=== PATIENT | female | born 1995 | race Two or more races ===

== ENCOUNTER 2018-08-23 16:18 | Emergency (ER) | payer SELFPAY ==
[~2018-08-23] VITALS: Ht 162.6 cm; Wt 80.7 kg
[~2018-08-23 16:18] MED LIST: BACTRIM-DS1 EA PO; VICODIN 5-5001 EACH PO
[2018-08-23] MEDS ORDERED: NKM (16:29)
[2018-08-23 16:35] VITALS: BP 155/101
--- NOTE | 2018-08-23 17:10 | Emergency Room Report ---
History of Present Illness General Chief Complaint: Flu Like Symptoms Source: Patient Present Illness HPI 22-year-old female presents to the emergency department complaining of 10 out of 10 in severity sore throat, fevers and chills, nasal congestion and rhinorrhea as well as swollen tender lymph nodes in the neck area 2 days. Patient states she has been around several other contacts who have had similar symptoms. Patient states she is up-to-date with vaccinations except for the sutures flu vaccine. Patient denies cough however she states she has a moderate amount of mucus in her throat that she is unable to clear. Denies SOB , CP , Palpitations or sudden onset of CASTILLO. Allergies: Coded Allergies: No Known Allergies (Unverified , 04/22/12) Patient History Past Medical History: see triage record Past Surgical History: none Pertinent Family History: none Last Menstrual Period: 07/30/18 Now: No Immunizations: UTD Reviewed Nursing Documentation: PMH: Agreed; PSxH: Agreed Nursing Documentation-PMH Past Medical History: No Stated History Review of Systems All Other Systems: negative except mentioned in HPI Physical Exam Vital Signs Date Time Temp Pulse Resp B/P (MAP) Pulse Ox O2 Delivery O2 Flow Rate FiO2 08/23/18 16:27 98.2 118 18 155/101 99 Room Air Sp02 EP Interpretation: reviewed, normal General Appearance: no apparent distress, alert, GCS 15, non-toxic Head: normocephalic, atraumatic Eyes: bilateral eye normal inspection, bilateral eye PERRL ENT: hearing grossly normal, normal voice, TMs + canals normal, uvula midline, moist mucus membranes, nasal congestion, tonsillar swelling, pharyngeal erythema , tonsillar exudate Neck: full range of motion, no meningismus Respiratory: chest non-tender, lungs clear, normal breath sounds, no wheezing, speaking full sentences Cardiovascular #1: regular rate, rhythm Musculoskeletal: back normal, gait/station normal, normal range of motion, non- tender Neurologic: alert, oriented x3, responsive, motor strength/tone normal, sensory intact, speech normal, grossly normal Psychiatric: judgement/insight normal Skin: normal color, no rash, warm/dry, well hydrated Lymphatic: no adenopathy Medical Decision Making PA Attestation Dr. Garcia is my supervising Physician whom patient management has been discussed with. Diagnostic Impression: Primary Impression: Pharyngitis, acute Qualified Codes: J02.0 - Streptococcal pharyngitis ER Course 22-year-old female presents to the emergency department complaining of 10 out of 10 in severity sore throat, fevers and chills, nasal congestion and rhinorrhea as well as swollen tender lymph nodes in the neck area 2 days. Patient states she has been around several other contacts who have had similar symptoms. Patient states she is up-to-date with vaccinations except for the sutures flu vaccine. Patient denies cough however she states she has a moderate amount of mucus in her throat that she is unable to clear. Denies SOB , CP , Palpitations or sudden onset of CASTILLO. Ddx considered but are not limited to: pharyngitis, strep, SEWER PIPE OFFBEARER, ludwigs angina, URI Vital signs: are WNL, pt. is afebrile H&PE are most consistent with: pharyngitis presumed strep. ORDERS: None required at this time as the diagnosis is clinical ED INTERVENTIONS: -Viscous Lidocaine PO -I do not identify an emergent condition at this time. With current presentation , pt. is stable for close outpatient follow up and conservative treatment. D/ w pt. to return promptly to ED with worsening or new symptoms.- Pt. verbalizes' understanding and agreement with proposed treatment plan.proposed treatment plan. DISCHARGE: At this time pt. is stable for d/c to home. Will provide printed patient care instructions, and any necessary prescriptions. Care plan and follow up instructions have been discussed with the patient prior to discharge. Last Vital Signs Date Time Temp Pulse Resp B/P (MAP) Pulse Ox O2 Delivery O2 Flow Rate FiO2 08/23/18 16:27 98.2 118 18 155/101 99 Room Air Disposition: HOME, SELF-CARE Condition: Stable Scripts Cetirizine Hcl/Pseudoephedrine (ZYRTEC-D TABLET) 1 Each Tab.er.12h 1 EACH ORAL Q12HR, #20 TAB Prov: Neyda Brunson 08/23/18 Guaifenesin (Guaifenesin) 1,200 Mg Tab.er.12h 1200 MG PO Q12HR, #20 TAB Prov: Neyda Brunson 08/23/18 Acetaminophen* (TYLENOL EXTRA STRENGTH*) 500 Mg Tablet 500 MG ORAL Q6H PRN for Mild Pain/Temp > 100.5, #30 TAB 0 Refills Prov: Neyda Brunson 08/23/18 Lidocaine HCl 2% Viscous (Lidocaine HCl 2% Viscous) 100 Ml Solution 15 ML ORAL QID, #220 ML Prov: Neyda Brunson 08/23/18 Amoxicillin/Potassium Clav 875-125* (AUGMENTIN 875-125 TABLET*) 1 Each Tablet 1 TAB ORAL TWICE A DAY for 10 Days, #20 TAB Prov: Neyda Brunson 08/23/18 Departure Forms: Return to Work Return to Work Date: Aug 27, 2018 Work Restrictions: None Return to Full Activity: Aug 27, 2018 Patient Instructions: Pharyngitis, [id number] Additional Instructions: Take medications as directed. Follow up with a Primary Care Provider in 3-5 days, even if your symptoms have resolved. --Please review list of primary care clinics, if you do not already have a primary care provider Return sooner to ED if new symptoms occur, or current symptoms become worse. - Please note that this Emergency Department Report was dictated using [employer] assembler technology software, occasionally this can lead to erroneous entry secondary to interpretation by the dictation equipment. Neyda Brunson Aug 23, 2018 17:10
[2018-08-23] MEDS ORDERED: TYLENOL EXTRA500 MG ORAL (17:12)
[2018-08-23] MEDS ORDERED: AUGMENTIN 875-1 EAC1 ORAL (17:12)
[2018-08-23] MEDS ORDERED: GUAIFENESIN1200 MG PO (17:12)
[2018-08-23] MEDS ORDERED: ZYRTEC-D TABLE1 EACH ORAL (17:12)
[2018-08-23] MEDS ORDERED: LIDOCAINE VISC100 ML ORAL (17:12)
[2018-08-23] MEDS ORDERED: Lidocaine 2% Visc 15ml soln ORAL ONE (17:15)
--- NOTE | 2018-08-23 17:16 | NUR ---
ED Nurse Note:congestion and nasal congestion with sore throat able to speak full sentences well. denies dyspnea at this time.
--- NOTE | 2018-08-23 17:33 | NUR ---
ED Nurse Note:pt tolerates meds well given dc aci and scripts. amb steady out of ed a/ox3 no dyspnea aware and agrees to fu plan
[2018-08-23 17:38] VITALS: BP 168/88
== END 2018-08-23 17:40 | disposition home or self-care (01) ==
LOC: EMR 17:31
DX: J02.9 Acute pharyngitis, unspecified (principal)
CPT/HCPCS: 99282